=== PATIENT | female | born 1955 | race Caucasian/White ===

== ENCOUNTER 2017-11-22 14:45 | Inpatient (IN) | payer MEDICAID ==
[~2017-11-22] VITALS: Ht 162.5 cm; Wt 181.6 kg
--- NOTE | ~2017-11-22 | PR ---
[place], [place] PROGRESS NOTE NAME: JULIETTE LAYTON UNIT #: [id number] ROOM: 530 DOCTOR: DARELL ANTUNEZ MD,CASTILLO BIRTHDATE: [birth year] DOS: 11/27/2017 SUBJECTIVE: She has been noted comfortable at this time, doing very well, switched to the oral diuretics yesterday. She was planned for possible home discharge today. She has also been assessed with physical therapy for the knees for home. Shortness of breath has continued to improve. There were no symptoms of coughing or chest pain reported by the patient. OBJECTIVE: VITAL SIGNS: For the patient, which has been recorded showed normal temperature, respiratory rate 14, heart rate 77, blood pressure 160/79-157/89. The pulse oxygen saturation on 3 liters was 95% saturation. HEENT: Examination shows head was atraumatic. Eyes nonicterus. NECK: Supple. CARDIOVASCULAR: S1, S2 is audible. LUNGS: Noted clear of any wheezing or crackles. ABDOMEN: Soft, nontender. It was obese. EXTREMITIES: Shows mild edema. IMPRESSION: 1. The patient is stable, respiratory status was noted at the present time with significant improvement noted with acute exacerbation. 2. History of chronic hypoxic respiratory failure. 3. Obstructive sleep apnea disorder. PLAN OF TREATMENT: The patient would be planned for discharge home today. No changes in the medical management at this time will be recommended. Continue previous recommendation for discharge, the patient pulmonary standpoint. Outpatient followup will be established by the patient post-discharge. CASTILLO LOZOYA MD CM:PNTRANS [phone] CASTILLO ANTUNEZ MD 11/27/171921 interface
--- NOTE | ~2017-11-22 | PR ---
[place], [place] PROGRESS NOTE NAME[facility]TON [id number] UNIT #: [id number] ROOM: 530 DOCTOR: DARELL ANTUNEZ MD,CASTILLO BIRTHDATE: [birth year] DOS: 11/24/2017 SUBJECTIVE: She has been noted with reduction in symptoms of shortness breath yesterday including wheezing and coughing. Denies symptoms of chest pain or any hemoptysis. Denies symptoms of nausea or vomiting. Denies any abdominal pain. Denies symptoms of hematemesis, melena or hematochezia. The remaining systems are rather reviewed, they were noted all normal. OBJECTIVE: VITAL SIGNS: Normal temperature, respiratory rate 16, heart rate 67, blood pressure 147/82. Pulse oxygen saturation on 3 liters nasal cannula was 90% saturation. HEENT: Head was atraumatic. Eyes nonicterus. NECK: Supple. It was obese. Severe reduced posterior pharyngeal space, high tongue base. Cardiac soft tissue structures. CARDIOVASCULAR: S1, S2 is audible. LUNGS: The patient was noted without any crackles, moderate decreased breath sounds noted with expiratory wheezing. ABDOMEN: Noted soft and obese. EXTREMITIES: Without any acute edema. MUSCULOSKELETAL: The patient noted without any acute deformities. CENTRAL NERVOUS SYSTEM: Cranial nerves 2-12 intact. No focal deficit. LABORATORY DATA: The patient had a CTA of the chest that was ordered by the primary care attending just noticed small area of ground glass opacity involving the lingula. Remaining lung was noted clear of any acute abnormality. There was no lymphadenopathy was noted. Some scarring in the right mid lung and the patient was also noted with infiltration at that level, cannot be completely excluded. BMP this morning, glucose 169, BUN normal, creatinine was normal. CO2 34. The CBC for the patient noted as normal CBC. IMPRESSION: 1. 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 2. Obstructive sleep apnea, not adherent to the treatment, but used the "BiPAP" for a few hours last night. 3. Hyperglycemia related to corticosteroids. 4. Possibility of small pneumonia or area of atelectasis left lingula can be considered as well. PLAN OF THERAPY: Continuation of the bronchodilators and oxygen supplementation and corticosteroids. The patient was encouraged to use the BiPAP for this patient at this time. Stated some pressure on the bridge of the nose, would be provided nasal strip for this patient to help overcome any pressure on the nose. Antibiotics the patient to be continued. Bronchodilator will be continued. The dose of Solu-Medrol will be decreased for the patient to 40 mg q. 8 hours today. All other plan of therapy for the patient to be continued as well. Monitor respiratory status closely. Usual care. [place], [place] PROGRESS NOTE NAME: JULIETTE LAYTON UNIT #: [id number] ROOM: [facility] DOCTOR: CASTILLO ABARCA MD BIRTHDATE: [birth year] CASTILLO LOZOYA MD CM:SCOTT [id number] CASTILLO ANTUNEZ MD 11/24/172106 interface
--- NOTE | ~2017-11-22 | PR ---
[place], [place] PROGRESS NOTE NAME: JULIETTE LAYTON UNIT #: [id number] ROOM: 530 DOCTOR: DARELL ANTUNEZ MD,CASTILLO BIRTHDATE: [birth year] DOS: 11/26/2017 SUBJECTIVE: The patient was noted comfortable at this time without acute distress. She has been noted with improvement in the respiratory status, which has been noted progressively. Shortness of breath has been noted minimal. She has been assessed yesterday for the need of oxygen requirement was noted with oxygen supplementation needed 3 liters rest, 4 liters with walking and sleep. OBJECTIVE: VITAL SIGNS: For the patient this morning is normal temperature, respiratory rate 18, heart rate 74, blood pressure 160/90. HEENT: Showed no new change. Chronic obesity. CARDIOVASCULAR: S1, S2 is audible. LUNGS: Noted without any wheezing or crackles at present time. The breaths are noted mildly decreased bilaterally. ABDOMEN: Soft with severe obesity. LABORATORY DATA: Ultrasound of bilateral lower extremities for the patient was noted without any deep venous thrombosis. IMPRESSION: 1. Progressive improvement and resolution of the acute exacerbation of bronchial asthma. 2. History of obstructive sleep apnea disorder and respiratory failure. PLAN OF MANAGEMENT: Discharge the patient home on oral medications. Outpatient followup suggested for the patient. The patient was encouraged use of BiPAP/CPAP at home use as well. CASTLILO LOZOYA MD CM:PNTRANS [phone] CASTILLO ANTUNEZ MD 11/27/17 0103 interface
--- NOTE | ~2017-11-22 | CON ---
[place], [place] REPORT OF CONSULTATION NAME: JULIETTE LAYTON UNIT #: [id number] ROOM: 530 DOCTOR: CASTILLO ABARCA MD BIRTHDATE: [birth year] DOS: 11/23/2017 REQUESTED BY: Hospitalist services. REASON FOR CONSULTATION: To assess the patient for current ongoing acute respiratory symptoms, shortness breath, cough and others. HISTORY OF PRESENT ILLNESS: This is a 62-year-old white female patient who has been admitted to the hospital with developed symptoms of acute chest cold symptoms about a week. The patient started with exposure to the environment of tobacco products. The patient in her apartment facility. The patient stated she had developed progressive increased chest congestion with coughing with shortness of breath. The wheezing of the patient was also noted. All the symptoms progressed for the patient and was not improving at home. The patient came into the Emergency Room where she has been assessed and currently hospitalized for further medical management. She denies symptoms of hemoptysis or chest pain. Current symptom of cough and continue to remains nonproductive. REVIEW OF SYSTEMS: CONSTITUTIONAL SYMPTOMS: Reported as fatigue and tiredness and symptoms of fever or chills. EYES: Denies any burning, redness, or tenderness. EAR, NOSE, AND THROAT: Denies sore throat, hoarseness, otalgia, postnasal drainage or epistaxis. CARDIOVASCULAR: Denies angina pain, edema or pain of the lower extremities. GASTROINTESTINAL: Noted with severe morbid obesity for the patient without any abdominal pain, nausea, vomiting, diarrhea, hematemesis, or melena. GENITOURINARY: No dysuria, suprapubic pain, hematuria. SKIN: Denies any abnormal lesions or rashes. MUSCULOSKELETAL: Without acute deformity, chronic joint pain for the patient, which has been noted stable, unchanged. CENTRAL NERVOUS SYSTEM: Denies any symptoms of focal neurologic weakness. MUSCULOSKELETAL: Tingling sensation of the extremities. Remaining systems were reviewed. The patient, they were noted all negative. PAST MEDICAL HISTORY: 1. Hypothyroidism. 2. History of bronchial asthma. 3. Generalized anxiety disorder. 4. Congestive heart failure, whether systolic or diastolic was unknown. 5. Gastroesophageal reflux disease. 6. Essential hypertension. 7. Obstructive sleep apnea disorder, nonadherent with the treatment as well. 8. Prediabetes history. PAST SURGICAL HISTORY: 1. Appendectomy. 2. Bilateral total knee replacement. 3. Bladder sling insertion. [place], [place] REPORT OF CONSULTATION NAME: JULIETTE LAYTON UNIT #: [id number] ROOM: [facility] DOCTOR: CASTILLO ABARCA MD BIRTHDATE: [birth year] 4. Carpal tunnel surgery. 5. Cholecystectomy. 6. Right foot surgery. SOCIAL HISTORY: She is , lives at home in her own apartment, has 2 children. There were no past history of tobacco, alcohol or illicit drug use known. FAMILY HISTORY: The patient's father with complication of liver cancer. Mother as well. HOME MEDICATIONS: Listed on admission as use of vitamin B12, folic acid, gabapentin, Synthroid, lorazepam, metoprolol tartrate, omeprazole, oxybutynin, and Restoril. ALLERGIES: No known drug allergies. PHYSICAL EXAMINATION: GENERAL: This is a 62-year-old female patient who was being currently noted comfortably lying in the bed without any acute distress. Height of 5 feet 4 inches, weight of 400 pounds with BMI 68.7. VITAL SIGNS: For the patient which has been recorded showed normal temperature, respiratory rate 18-20, heart rate of 105-77, blood pressure 143/74-92/65. Pulse oxygen saturation on room air 90%, on 3 liters at 92% saturation. HEENT: Head was atraumatic. Eyes nonicterus. Severe reduced posterior pharyngeal space with high tongue base and crowding soft tissue structures. NECK: Supple. Short and obese. CARDIOVASCULAR SYSTEM: S1, S2 audible. LUNGS: Noted general reduction of the breath sounds were noted bilaterally. Expiratory wheezing was present. ABDOMEN: Soft with severe morbid obesity. EXTREMITIES: Shows chronic severe obesity without edema, clubbing or cyanosis. SKIN: Visible skin: No lesions or rashes. MUSCULOSKELETAL: Without acute deformities. CENTRAL NERVOUS SYSTEM: Limited examination; however, no focal deficit noted. LABORATORY DATA: Lactic acid on admission 2.0. Arterial blood gas on admission on room air, pH of 7.35, pCO2 of 61, pO2 of 84. CMP of the patient that was done on admission shows BUN 11, creatinine 1.06, glucose 137, CO2 of 33. Influenza A and B, nasal washing antigen for the patient on 11/22/2017 were negative. The CBC of the patient on 11/22/2017 normal. CMP of the patient that was done this morning, BUN 9, creatinine 1.09, glucose 169. CBC this morning was noted as normal. The CBC of the patient on 11/22/2017 shows eosinophils of 4.9%. The chest x-ray of the patient 2-view limited assessment because severe morbid obesity of the patient, unable to assess the patient correctly but at least there were no large area of consolidation or any evidence of pleural fluids. IMPRESSION: 1. The patient was admitted to the hospital noted with acute exacerbation of [place], [place] REPORT OF CONSULTATION NAME: JULIETTE LAYTON UNIT #: [id number] ROOM: 530 DOCTOR: DARELL ANTUNEZ MD,CASTILLO BIRTHDATE: [birth year] bronchial asthma with eosinophilic type would be considered likely. 2. History of obstructive sleep apnea disorder, nonadherence to the treatment. 3. Severe morbid obesity. 4. Mild hyperglycemia related to corticosteroids. PLAN OF MANAGEMENT: Continue oxygen supplementation, bronchodilators and other treatment. Dose of Solu-Medrol for the patient will be continued 60 mg q. 8 hours for the 24 hours today and then the dose could be reduced from tomorrow based on the further improvement in respiratory status. Other supportive therapy, plan of management, to be continued with addition of changes will be recommended based on the further progression of illness and further assessment. Thanks for allowing me to participate in the care of this patient. CASTILLO LOZOYA MD CM:CONSTR:REPORT OF CONSULTATION 1504 11/24/17 0240 interface
--- NOTE | ~2017-11-22 | PR ---
[place], [place] PROGRESS NOTE NAME: JULIETTE LAYTON UNIT #: [id number] ROOM: 530 DOCTOR: DARELL ANTUNEZ MD,CASTILLO BIRTHDATE: [birth year] DOS: 11/25/2017 SUBJECTIVE: She has been noted comfortable at this time, tolerating the BiPAP during this current hospitalization, willing to use that. Denies symptoms of chest pain or any hemoptysis or any abdominal pain. The patient has not been noted with symptoms of abdominal pain. Shortness of breath is resolving. Coughing and wheezing are all improving progressively. OBJECTIVE: VITAL SIGNS: Normal temperature, respiratory rate 18, heart rate 76, blood pressure 170/96-164/99. Pulse oxygen saturation on 3 liters nasal cannula is 92% saturation. HEENT: Head was atraumatic. Eyes nonicterus. Chronic obesity. CARDIOVASCULAR: S1, S2 audible. LUNGS: Without any crackle, rhonchi, or wheezing today. ABDOMEN: Soft, very obese. EXTREMITIES: Without any acute edema. LABORATORY DATA: Blood glucose noted elevated at 221, normal BUN and creatinine. CBC of this morning, hemoglobin 11.8, platelet count was normal. IMPRESSION: 1. Resolving acute exacerbation of bronchial asthma. 2. Obstructive sleep apnea disorder, not adherent with the therapy at home. 3. The patient with respiratory failure as well. PLAN OF TREATMENT: Continuation of bronchodilators, oxygen supplementation. Discharge planning. The patient has been ordered echocardiogram that was pending for the patient. Assess the results as well. Continue other supportive plan of management, other therapy and care plan. Usual treatment. CASTILLO LOZOYA MD CM:PNTRANS [phone] CASTILLO ANTUNEZ MD 11/26/17 0042 interface
--- NOTE | ~2017-11-22 | CON ---
[place], [place] REPORT OF CONSULTATION NAME: JULIETTE LAYTON UNIT #: [id number] ROOM: 530 DOCTOR: SALENA BRINK MD BIRTHDATE: [birth year] DOS: 11/23/2017 CARDIOLOGY CONSULT REASON FOR CONSULTATION: Dyspnea and congestive heart failure. CLINICAL HISTORY: The patient is a 62-year-old patient with history of hypertension, COPD, morbid obesity, acid reflux, sleep apnea, was admitted for her shortness of breath as well as productive cough. Cardiology was consulted for further recommendations due to her dyspnea. Her main complaint is cough as well as some wheezing and also progressed shortness of breath and lower extremity edema. Denies any PND or orthopnea. No nausea, vomiting or diarrhea. No palpitation, no dizziness, no syncope, no chest pains, no visual changes, no headache, no neurologic symptoms. She was on home oxygen as needed. At the time of examination, the patient is comfortable, denies any chest pain. Her breathing is better. REVIEW OF SYSTEMS: Review of the 10 systems negative except as described above. PAST MEDICAL HISTORY: 1. Hypertension. 2. COPD. 3. Morbid obesity. 4. Sleep apnea. 5. Chronic kidney disease. 6. Asthma. 7. Dyslipidemia. 8. Hypothyroidism. 9. Overactive bladder. 10. History of pulmonary emboli about 15 years ago. PAST SURGICAL HISTORY: 1. History of appendicectomy. 2. Bilateral knee replacement. 3. Cholecystectomy. HOME MEDICATIONS: Reviewed. SOCIAL HISTORY: The patient does not smoke or drink, does not use illicit drugs. FAMILY HISTORY: Father from liver cancer. Mother , cause unknown. ALLERGIES: THE PATIENT IS ALLERGIC TO TAPE. PHYSICAL EXAMINATION: VITAL SIGNS: Blood pressure 143/74, pulse 79, respiration rate is 18, weight of 181.5 kilos with a BMI 68.8. GENERAL: Alert, comfortable, in no acute distress. [place], [place] REPORT OF CONSULTATION NAME: JULIETTE LAYTON UNIT #: [id number] ROOM: 530 DOCTOR: SALENA BRINK MD BIRTHDATE: [birth year] HEENT: Pupils are round and equal. No jaundice. Tongue was moist. Pharynx clear. NECK: Supple, no distended neck veins, no carotid bruit. CHEST: Symmetrical, nontender. LUNGS: A few scattered rhonchi, diminished at the bases. HEART: Regular rhythm, no S3. Distant heart sounds, grade 1/6 systolic murmur at the right sternal border. No palpable thrills. ABDOMEN: Morbidly obese. Bowel sounds normal. Unable to do a complete exam due to morbid obesity. EXTREMITIES: Showed 2+ edema. Distal pulses are fair. SKIN: Warm and dry. No cyanosis. NEUROLOGIC: The patient is alert, oriented. No focal neurologic deficit. RECTAL: Deferred. GENITOURINARY: Deferred. REVIEW OF THE DIAGNOSTIC TESTS: EKG shows sinus rhythm, left ventricular hypertrophy. Labs reviewed. A 2D echo in August 2016 reviewed, which was technically suboptimal study with normal LV function. TSH 1.0, hemoglobin 12.6, platelets 276,000, white cell count 5.7. Creatinine 1.0. IMPRESSION: 1. Acute chronic diastolic heart failure. 2. Super morbid obesity. 3. Chronic obstructive pulmonary disease exacerbation. 4. Hypertension. 5. Sleep apnea. 6. Hypoxemia. 7. History of pulmonary emboli about 15 years ago, postoperative after her knee surgeries. 8. Status post bilateral knee replacement. RECOMMENDATIONS: 1. Blood pressure and heart rates are stable. 2. Start Lasix 20 mg once daily, monitor her blood pressure and renal function. 3. Check 2D echo with [facility] for LV function and valvular function. 4. She was scheduled to have a CT angio of the chest to rule out pulmonary emboli. 5. Continue her home medications as well as oxygen. 6. No family at bedside at the time of my examination. 7. Risk factor modification for diet, exercise and gradual weight loss discussed. [place], [place] REPORT OF CONSULTATION NAME: JULIETTE LAYTON UNIT #: [id number] ROOM: 530 DOCTOR: KEENA SILVA,SALENA BIRTHDATE: [birth year] SALENA BRINK MD CM:CONSTR:REPORT OF CONSULTATION 45 11/23/172227 interface
--- NOTE | ~2017-11-22 | PR ---
[place], [place] PROGRESS NOTE NAME: JULIETTE LAYTON UNIT #: [id number] ROOM: 530 DOCTOR: SALENA BRINK MD BIRTHDATE: [birth year] DOS: 11/24/2017 REASON FOR VISIT: Congestive heart failure and hypertension. SUBJECTIVE: The patient is feeling better. Edema is about the same, no PND, no orthopnea, no nausea, vomiting, no diarrhea, no fever and chills, no cough. REVIEW OF SYSTEMS: Review of the 8 systems negative except as mentioned above. RHYTHM STRIPS: The patient in sinus rhythm. PHYSICAL EXAMINATION: VITAL SIGNS: Blood pressure 147/82, pulse 67, respiration rate of 16. GENERAL: Alert, comfortable, in no acute distress. HEENT: Pupils are equal, no jaundice. NECK: Supple, no distended neck veins, no carotid bruit. CHEST: Nontender. LUNGS: Fair air entry bilaterally. HEART: Regular rhythm, no S3. Distant heart sounds. ABDOMEN: Morbidly obese. Bowel sounds normal. EXTREMITIES: Showed at least 2+ edema. Distal pulses are fair. SKIN: Warm and dry. No cyanosis, no clubbing. LABORATORY DATA AND MEDICATIONS: Reviewed. IMPRESSION: 1. Acute on chronic diastolic heart failure. 2. Hypertension. 3. Super morbid obesity. 4. Sleep apnea. 5. History of pulmonary emboli about 15 years ago. 6. Acute on chronic obstructive pulmonary disease exacerbation. RECOMMENDATIONS: 1. Continue current medications. 2. Continue her Lasix 20 mg and adjust the dose based on her response to the medication renal functions. 3. A 2D echo was ordered and this will be done Saturday. 4. Risk factor modification for diet, exercise, weight loss discussed. [place], [place] PROGRESS NOTE NAME: JULIETTE LAYTON UNIT #: [id number] ROOM: 530 DOCTOR: SALENA BRINK MD BIRTHDATE: [birth year] SALENA BRINK MD CM:PNTRANS [phone] SALENA BRINK MD 11/25/17 0020 interface
[~2017-11-22 14:45] MED LIST: 'PARAFON FORTE500 M1 PO; AMBIEN10 MG PO; ANAPROX DS550 MG PO; ATIVAN1 MG PO; B121000 MCG/1 IM; DALMANE30 MG PO; FAMOTIDINE20 M1 PO; HYDROCODONE BIT1 T11 PO; KEFLEX500 MG PO; LOPRESSOR50 MG PO; MOTRIN800 MG PO; NATURE'S BLEND F1 MG PO; NEURONTIN600 MG PO; NORCO 10-325 T1 EACH PO; NYAMYC100000 U/G T; OXYBUTYNIN5 MG PO; PREDNISONE20 MG PO; PRILOSEC20 MG PO; RESTORIL15 MG PO; ROBAXIN750 MG PO; ROBITUSSIN AC 110 ML PO; ROBITUSSIN DM 101 OZ; SYMBICORT1 AE1 IH; SYNTHROID,LEV100 MCG PO; XANAX0.5 MG PO; ZITHROMAX Z PA250 MG PO; ZOLOFT100 MG PO; ZYRTEC10 M2 PO
[2017-11-22 14:55] VITALS: BP 137/72
[2017-11-22 15:51] LABS: ABG BASE EXCESS 6.1 mmol/L (-2.0-2.0); ABG O2 SATURATION 96.4 % (95-97); ARTERIAL BLOOD GAS PCO2 61.3 mmHg (35-45); ARTERIAL BLOOD GAS PH 7.351 (7.35-7.45); ARTERIAL BLOOD GAS PO2 84.1 mmHg (80-90)
[2017-11-22 15:54] LABS: ALBUMIN 3.1 gm/dl (3.1-4.5); ALKALINE PHOSPHATASE 81 U/L (45-117); BUN 11 mg/dl (7-24); CHLORIDE 103 mmol/L (98-107); CREATININE 1.06 mg/dL (0.55-1.02); POTASSIUM 3.9 mmol/L (3.5-5.1); SGOT/AST 25 IU/L (3-35); SGPT/ALT 19 U/L (12-78); SODIUM 141 mmol/L (136-145); TOTAL PROTEIN 7.5 gm/dL (6.4-8.2); TROPONIN I 0.019 ng/ml (<0.045)
[2017-11-22 16:06] LABS: BASO % 0.7 % (0.0-1.0); EOS # 0.3 10*3/uL (0.0-0.4); EOS % 4.9 % (1.0-4.0); HEMATOCRIT 41.8 % (37.0-47.0); HEMOGLOBIN 12.7 g/dl (12.0-16.0); LYMPH # 1.9 10*3/uL (1.3-4.4); MEAN CELL VOLUME 97.4 fl (81.0-99.0); MEAN CORPUSCULAR HGB 29.6 pg (27.0-31.0); MEAN CORPUSCULAR HGB CONC 30.4 g/dl (33.0-37.0); MEAN PLATELET VOLUME 9.5 fl (9.6-12.3); MONO # 0.4 10*3/uL (0.1-1.0); MONO % 7.5 % (3.0-9.0); NEUT # 3.2 10*3/uL (2.3-7.9); NEUT % 53.6 % (47.0-73.0); PLATELET COUNT AUTOMATED 249 10*3/uL (130-400); RED BLOOD COUNT 4.29 10*6/uL (4.10-5.10); RED CELL DISTRI WIDTH 14.2 % (0-14.5); WHITE BLOOD COUNT 5.9 10*3/uL (4.8-10.8)
[2017-11-22 16:24] VITALS: BP 150/57
[2017-11-22 17:10] VITALS: BP 92/645; BP 92/65
[2017-11-22 17:15] VITALS: BP 92/65
[2017-11-22] MEDS ORDERED: ZESTORETIC 10-1 EACH PO (17:56)
[2017-11-22] MEDS ORDERED: FLOVENT DISKUS50 MCG INH (17:57)
[2017-11-22] MEDS ORDERED: GOOD NEIGHBOR L10 MG PO (17:58)
[2017-11-22 21:33] VITALS: BP 142/88
[2017-11-23 00:39] VITALS: BP 153/83
[2017-11-23 06:35] LABS: BASO % 0.2 % (0.0-1.0); HEMATOCRIT 42.6 % (37.0-47.0); HEMOGLOBIN 12.6 g/dl (12.0-16.0); LYMPH # 0.7 10*3/uL (1.3-4.4); LYMPH % 12.5 % (27.0-41.0); MEAN CELL VOLUME 97.9 fl (81.0-99.0); MEAN CORPUSCULAR HGB CONC 29.6 g/dl (33.0-37.0); MEAN PLATELET VOLUME 9.6 fl (9.6-12.3); MONO # 0.1 10*3/uL (0.1-1.0); MONO % 1.4 % (3.0-9.0); NEUT # 4.8 10*3/uL (2.3-7.9); PLATELET COUNT AUTOMATED 276 10*3/uL (130-400); RED BLOOD COUNT 4.35 10*6/uL (4.10-5.10); RED CELL DISTRI WIDTH 13.9 % (0-14.5); WHITE BLOOD COUNT 5.7 10*3/uL (4.8-10.8)
[2017-11-23 07:05] LABS: ALKALINE PHOSPHATASE 74 U/L (45-117); BUN 9 mg/dl (7-24); CHLORIDE 102 mmol/L (98-107); CHOLESTEROL 165 mg/dL (<200); CREATININE 1.09 mg/dL (0.55-1.02); HDL CHOLESTEROL 49 mg/dl (40-60); LDL CHOLESTEROL 101 mg/dL (9-159); PHOSPHOROUS 3.7 mg/dL (2.5-4.9); POTASSIUM 4.2 mmol/L (3.5-5.1); SGOT/AST 23 IU/L (3-35); SGPT/ALT 21 U/L (12-78); SODIUM 142 mmol/L (136-145); TOTAL PROTEIN 7.6 gm/dL (6.4-8.2); TRIGLYCERIDES 74 mg/dl (<150); VLDL CHOLESTEROL 15 mg/dL (6-40)
[2017-11-23 08:00] VITALS: BP 149/84
[2017-11-23 08:05] LABS: VITAMIN D, 25-HYDROXY 45.4 ng/mL (30-100)
[2017-11-23 12:00] VITALS: BP 143/74
[2017-11-23 16:00] VITALS: BP 142/77
[2017-11-23 20:00] VITALS: BP 148/82
[2017-11-24] VITALS: BP 150/75
[2017-11-24 06:59] LABS: BUN 14 mg/dl (7-24); CHLORIDE 98 mmol/L (98-107); CREATININE 0.96 mg/dL (0.55-1.02); POTASSIUM 4.2 mmol/L (3.5-5.1); SODIUM 139 mmol/L (136-145)
[2017-11-24 08:27] VITALS: BP 171/95
[2017-11-24 12:19] VITALS: BP 147/82
[2017-11-24 16:00] VITALS: BP 160/88
[2017-11-25] VITALS: BP 164/99
[2017-11-25 07:04] LABS: BASO % 0.1 % (0.0-1.0); HEMATOCRIT 39.3 % (37.0-47.0); HEMOGLOBIN 11.8 g/dl (12.0-16.0); LYMPH # 0.6 10*3/uL (1.3-4.4); MEAN CELL VOLUME 97.3 fl (81.0-99.0); MEAN CORPUSCULAR HGB 29.2 pg (27.0-31.0); MEAN PLATELET VOLUME 10.1 fl (9.6-12.3); MONO # 0.2 10*3/uL (0.1-1.0); MONO % 2.2 % (3.0-9.0); NEUT # 7.4 10*3/uL (2.3-7.9); NEUT % 89.5 % (47.0-73.0); PLATELET COUNT AUTOMATED 280 10*3/uL (130-400); RED BLOOD COUNT 4.04 10*6/uL (4.10-5.10); RED CELL DISTRI WIDTH 13.8 % (0-14.5); WHITE BLOOD COUNT 8.3 10*3/uL (4.8-10.8)
[2017-11-25 07:20] LABS: BUN 18 mg/dl (7-24); CHLORIDE 99 mmol/L (98-107); CREATININE 0.94 mg/dL (0.55-1.02); POTASSIUM 3.8 mmol/L (3.5-5.1); SODIUM 140 mmol/L (136-145)
[2017-11-25 08:00] VITALS: BP 170/96
[2017-11-25 12:00] VITALS: BP 160/85
[2017-11-25 16:00] VITALS: BP 130/66
[2017-11-25 20:00] VITALS: BP 143/75; BP 160/85
[2017-11-26 00:26] VITALS: BP 155/85
[2017-11-26 08:00] VITALS: BP 160/90
[2017-11-26 12:00] VITALS: BP 155/86
[2017-11-26 16:00] VITALS: BP 139/69
[2017-11-26 20:00] VITALS: BP 160/85
[2017-11-27] VITALS: BP 157/85
[2017-11-27 06:34] LABS: BASO % 0.1 % (0.0-1.0); HEMATOCRIT 39.9 % (37.0-47.0); HEMOGLOBIN 12.1 g/dl (12.0-16.0); LYMPH # 0.6 10*3/uL (1.3-4.4); LYMPH % 9.2 % (27.0-41.0); MEAN CELL VOLUME 95.2 fl (81.0-99.0); MEAN CORPUSCULAR HGB 28.9 pg (27.0-31.0); MEAN CORPUSCULAR HGB CONC 30.3 g/dl (33.0-37.0); MEAN PLATELET VOLUME 10.3 fl (9.6-12.3); MONO # 0.2 10*3/uL (0.1-1.0); NEUT % 86.3 % (47.0-73.0); PLATELET COUNT AUTOMATED 283 10*3/uL (130-400); RED BLOOD COUNT 4.19 10*6/uL (4.10-5.10); RED CELL DISTRI WIDTH 13.5 % (0-14.5)
[2017-11-27 06:57] LABS: BUN 22 mg/dl (7-24); CHLORIDE 95 mmol/L (98-107); CREATININE 0.97 mg/dL (0.55-1.02); POTASSIUM 4.1 mmol/L (3.5-5.1); SODIUM 137 mmol/L (136-145)
[2017-11-27 08:00] VITALS: BP 168/79
[2017-11-27 12:00] VITALS: BP 153/68
[2017-11-27] MEDS ORDERED: PREDNISONE10 MG PO (13:30)
[2017-11-27] MEDS ORDERED: ASPIRIN ADULT L81 M2 PO (13:30)
[2017-11-27] MEDS ORDERED: MUCINEX ER600 MG PO (13:30)
[2017-11-27] MEDS ORDERED: FUROSEMIDE40 MG PO (13:30)
[2017-11-27] MEDS ORDERED: PROAIR HFA8.5 GM INH (13:32)
== END 2017-11-27 15:30 | disposition home health service (06) | DRG 291 ==
LOC: ED 14:45 → EDHOLD 16:00 → 5E 16:00
PROVIDERS: Internal Medicine; Nurse Practitioner Family; Student in an Organized Health Care Education/Training Program
DX: I13.0 Hypertensive heart and chronic kidney disease with heart failure and stage 1 through stage 4 chronic kidney disease, or unspecified chronic kidney disease (principal); J18.9 Pneumonia, unspecified organism; J96.11 Chronic respiratory failure with hypoxia; E87.2 Acidosis; J44.0 Chronic obstructive pulmonary disease with (acute) lower respiratory infection; E44.1 Mild protein-calorie malnutrition; E66.01 Morbid (severe) obesity due to excess calories; J45.901 Unspecified asthma with (acute) exacerbation; N18.3 Chronic kidney disease, stage 3 (moderate); K76.0 Fatty (change of) liver, not elsewhere classified; I50.33 Acute on chronic diastolic (congestive) heart failure; J44.1 Chronic obstructive pulmonary disease with (acute) exacerbation; Z68.44 Body mass index [BMI] 60.0-69.9, adult; G62.9 Polyneuropathy, unspecified; E53.8 Deficiency of other specified B group vitamins; F41.1 Generalized anxiety disorder; D72.810 Lymphocytopenia; K21.9 Gastro-esophageal reflux disease without esophagitis; N32.81 Overactive bladder; E03.9 Hypothyroidism, unspecified; Z96.653 Presence of artificial knee joint, bilateral; Z90.49 Acquired absence of other specified parts of digestive tract; Z98.51 Tubal ligation status; Z80.8 Family history of malignant neoplasm of other organs or systems; Z82.49 Family history of ischemic heart disease and other diseases of the circulatory system; Z88.9 Allergy status to unspecified drugs, medicaments and biological substances; Z86.718 Personal history of other venous thrombosis and embolism; G47.33 Obstructive sleep apnea (adult) (pediatric); Z86.711 Personal history of pulmonary embolism

== ENCOUNTER → 2018-11-06 | Outpatient (CLI) | payer MEDICAID ==
[~2018-11-06] MED LIST changes: +ASPIRIN ADULT L81 M2 PO; +AVPAK AZITHROM250 MG PO; +COZAAR50 M1 PO; +FLOVENT DISKUS50 MCG INH; +FUROSEMIDE40 MG PO; +GOOD NEIGHBOR L10 MG PO; +KLOR-CON M1010 ME1 PO; +LASIX20 MG PO; +LOPRESSOR100 M1 PO; -LOPRESSOR50 MG PO; +MUCINEX ER600 MG PO; +PREDNISONE10 MG PO; +PROAIR HFA8.5 GM INH; +ZESTORETIC 10-1 EACH PO
--- NOTE | ~2018-11-06 | ST ---
[place], [place] EXERCISE STRESS TEST REPORT NAME: JULIETTE LAYTON UNIT #: [id number] ROOM: DOCTOR: HOLLIE SILVA [facility] BIRTHDATE: [birth year] DOS: 11/06/2018 Received Lexiscan 0.4 mg over 10 seconds. Isotope was injected. Heart rate is 97, no ischemic changes on EKG. No complication noted. Myocardial perfusion scan to follow. VENTURA BROWNE MD CM:STRESS:EXERCISE STRESS TEST REPORT [id number] VENTURA BROWNE MD [facility]
== END | disposition home or self-care (01) ==
LOC: CARD 02:47
DX: R07.9 Chest pain, unspecified (principal); R53.81 Other malaise

== ENCOUNTER → 2020-02-10 | Outpatient (CLI) | payer MEDICAID | END | disposition home or self-care (01) | LOC: COVID19 00:29 | DX: R50.9 Fever, unspecified (principal); Z20.828 Contact with and (suspected) exposure to other viral communicable diseases ==

== ENCOUNTER 2020-06-12 16:05 | Inpatient (IN) | payer MEDICAID ==
[~2020-06-12] VITALS: Ht 163 cm; Wt 182.5 kg
[~2020-06-12 16:05] MED LIST changes: +PRILOSEC20 M1 PO; -PRILOSEC20 MG PO
[2020-06-12 16:16] VITALS: BP 138/62
[2020-06-12 16:46] LABS: BASO % 0.2 % (0.0-1.0); EOS # 0.1 10*3/uL (0.0-0.4); EOS % 2.2 % (1.0-4.0); HEMATOCRIT 39.6 % (37.0-47.0); LYMPH # 0.8 10*3/uL (1.3-4.4); LYMPH % 20.5 % (27.0-41.0); MEAN CELL VOLUME 95.9 fl (81.0-99.0); MEAN CORPUSCULAR HGB 29.1 pg (27.0-31.0); MEAN CORPUSCULAR HGB CONC 30.3 g/dl (33.0-37.0); MEAN PLATELET VOLUME 9.9 fl (9.6-12.3); MONO # 0.3 10*3/uL (0.1-1.0); MONO % 6.8 % (3.0-9.0); NEUT # 2.9 10*3/uL (2.3-7.9); NEUT % 69.8 % (47.0-73.0); PLATELET COUNT AUTOMATED 210 10*3/uL (130-400); RED BLOOD COUNT 4.13 10*6/uL (4.10-5.10); RED CELL DISTRI WIDTH 13.7 % (0-14.5); WHITE BLOOD COUNT 4.1 10*3/uL (4.8-10.8)
[2020-06-12 16:57] LABS: ACT PARTIAL THROMBO TIME 24.9 SECONDS (20.0-32.1)
[2020-06-12 17:03] LABS: ALBUMIN 3.1 gm/dl (3.1-4.5); ALKALINE PHOSPHATASE 72 U/L (45-117); BUN 13 mg/dl (7-24); CHLORIDE 95 mmol/L (98-107); CREATININE 0.89 mg/dL (0.55-1.02); POTASSIUM 4.3 mmol/L (3.5-5.1); SGOT/AST 16 IU/L (3-35); SGPT/ALT 17 U/L (12-78); SODIUM 140 mmol/L (136-145); TOTAL PROTEIN 7.2 gm/dL (6.4-8.2)
[2020-06-12 17:06] LABS: TROPONIN I < 0.015 ng/ml (<0.045)
[2020-06-12 17:24] LABS: ABG BASE EXCESS 13.9 mmol/L (-2.0-2.0); ARTERIAL BLOOD GAS PH 7.32 (7.35-7.45)
[2020-06-12 17:30] VITALS: BP 130/74
[2020-06-12 18:30] VITALS: BP 130/74
[2020-06-12 20:00] VITALS: BP 122/54
[2020-06-12 23:12] LABS: ABG BASE EXCESS 13.8 mmol/L (-2.0-2.0); ARTERIAL BLOOD GAS PH 7.329 (7.35-7.45)
[2020-06-13] VITALS: BP 138/66
[2020-06-13] MEDS ORDERED: LOSARTAN POTASS50 M1 PO (01:48)
[2020-06-13] MEDS ORDERED: VITAMIN D3125 MC1 PO (01:50)
[2020-06-13] MEDS ORDERED: GLUCOPHAGE XR750 MG PO (01:51)
[2020-06-13] MEDS ORDERED: CELEXA10 MG PO (01:52)
[2020-06-13] MEDS ORDERED: LYRICA300 MG PO (01:53)
[2020-06-13 06:52] LABS: BASO % 0.3 % (0.0-1.0); HEMATOCRIT 37.6 % (37.0-47.0); LYMPH # 0.6 10*3/uL (1.3-4.4); LYMPH % 15.3 % (27.0-41.0); MEAN CELL VOLUME 93.3 fl (81.0-99.0); MEAN CORPUSCULAR HGB 28.5 pg (27.0-31.0); MEAN CORPUSCULAR HGB CONC 30.6 g/dl (33.0-37.0); MEAN PLATELET VOLUME 10.2 fl (9.6-12.3); MONO # 0.1 10*3/uL (0.1-1.0); MONO % 1.5 % (3.0-9.0); NEUT # 3.2 10*3/uL (2.3-7.9); NEUT % 82.1 % (47.0-73.0); PLATELET COUNT AUTOMATED 199 10*3/uL (130-400); RED BLOOD COUNT 4.03 10*6/uL (4.10-5.10); RED CELL DISTRI WIDTH 13.6 % (0-14.5); WHITE BLOOD COUNT 3.9 10*3/uL (4.8-10.8)
[2020-06-13 07:01] LABS: ACT PARTIAL THROMBO TIME 25.3 SECONDS (20.0-32.1)
[2020-06-13 07:08] LABS: ALBUMIN 3.1 gm/dl (3.1-4.5); ALKALINE PHOSPHATASE 68 U/L (45-117); BUN 12 mg/dl (7-24); CHLORIDE 96 mmol/L (98-107); CHOLESTEROL 207 mg/dL (<200); CREATININE 0.73 mg/dL (0.55-1.02); FREE T4 1.17 ng/dl (0.76-1.46); HDL CHOLESTEROL 55 mg/dl (40-60); LDL CHOLESTEROL 129 mg/dL (9-159); SGOT/AST 28 IU/L (3-35); SGPT/ALT 18 U/L (12-78); SODIUM 137 mmol/L (136-145); TOTAL PROTEIN 7.2 gm/dL (6.4-8.2); TRIGLYCERIDES 114 mg/dl (<150); VLDL CHOLESTEROL 23 mg/dL (6-40)
[2020-06-13 07:16] LABS: POTASSIUM 4.8 mmol/L (3.5-5.1)
[2020-06-13 07:39] LABS: VITAMIN D, 25-HYDROXY 55.8 ng/mL (30-100)
[2020-06-13 08:00] VITALS: BP 146/64
[2020-06-13 09:20] LABS: ABG BASE EXCESS 12.8 mmol/L (-2.0-2.0); ARTERIAL BLOOD GAS PH 7.405 (7.35-7.45)
== END 2020-06-13 11:09 | disposition left against medical advice (07) | DRG 140 ==
LOC: ED 16:05 → EDHOLD 17:34 → 5E 17:49
PROVIDERS: Emergency Medicine; Internal Medicine; Internal Medicine Critical Care Medicine; ADMIT Family Medicine; ATTEND Family Medicine
PROC: 5A09357 Assistance with Respiratory Ventilation, Less than 24 Consecutive Hours, Continuous Positive Airway Pressure (ICD-10-PCS; principal; 2020-06-13)
DX: J44.1 Chronic obstructive pulmonary disease with (acute) exacerbation (principal); J96.21 Acute and chronic respiratory failure with hypoxia; E66.01 Morbid (severe) obesity due to excess calories; J96.22 Acute and chronic respiratory failure with hypercapnia; D72.819 Decreased white blood cell count, unspecified; E87.8 Other disorders of electrolyte and fluid balance, not elsewhere classified; R73.9 Hyperglycemia, unspecified; E03.9 Hypothyroidism, unspecified; K21.9 Gastro-esophageal reflux disease without esophagitis; F41.9 Anxiety disorder, unspecified; N18.30 Chronic kidney disease, stage 3 unspecified; G62.9 Polyneuropathy, unspecified; N32.81 Overactive bladder; Z96.653 Presence of artificial knee joint, bilateral; Z77.22 Contact with and (suspected) exposure to environmental tobacco smoke (acute) (chronic); E78.1 Pure hyperglyceridemia; Z53.29 Procedure and treatment not carried out because of patient's decision for other reasons; G47.33 Obstructive sleep apnea (adult) (pediatric); R07.89 Other chest pain; I13.0 Hypertensive heart and chronic kidney disease with heart failure and stage 1 through stage 4 chronic kidney disease, or unspecified chronic kidney disease; E87.3 Alkalosis; I50.32 Chronic diastolic (congestive) heart failure; Z99.81 Dependence on supplemental oxygen; Z91.048 Other nonmedicinal substance allergy status; Z90.49 Acquired absence of other specified parts of digestive tract; Z82.49 Family history of ischemic heart disease and other diseases of the circulatory system; Z80.0 Family history of malignant neoplasm of digestive organs; Z80.3 Family history of malignant neoplasm of breast; Z79.899 Other long term (current) drug therapy; Z79.82 Long term (current) use of aspirin; Z98.51 Tubal ligation status; Z68.44 Body mass index [BMI] 60.0-69.9, adult

== ENCOUNTER 2021-01-15 21:26 | Emergency (ER) | payer MEDICAID ==
[~2021-01-15 21:26] MED LIST changes: +CELEXA10 MG PO; +GLUCOPHAGE XR750 MG PO; +LOSARTAN POTASS50 M1 PO; +LYRICA300 MG PO; +VITAMIN D3125 MC1 PO
[2021-01-15 21:44] VITALS: BP 149/72
[2021-01-15 22:24] LABS: BASO % 0.4 % (0.0-1.0); EOS # 0.1 10*3/uL (0.0-0.4); EOS % 2.4 % (1.0-4.0); HEMATOCRIT 35.3 % (37.0-47.0); LYMPH % 21.3 % (27.0-41.0); MEAN PLATELET VOLUME 10.1 fl (9.6-12.3); MONO # 0.4 10*3/uL (0.1-1.0); MONO % 7.9 % (3.0-9.0); NEUT # 3.1 10*3/uL (2.3-7.9); NEUT % 67.1 % (47.0-73.0); PLATELET COUNT AUTOMATED 191 10*3/uL (130-400); RED BLOOD COUNT 3.53 10*6/uL (4.10-5.10); RED CELL DISTRI WIDTH 14.7 % (0-14.5); WHITE BLOOD COUNT 4.6 10*3/uL (4.8-10.8)
[2021-01-15 22:41] LABS: ALBUMIN 2.7 gm/dl (3.1-4.5); ALKALINE PHOSPHATASE 72 U/L (45-117); BUN 9 mg/dl (7-24); CHLORIDE 101 mmol/L (98-107); POTASSIUM 3.9 mmol/L (3.5-5.1); SGOT/AST 16 IU/L (3-35); SGPT/ALT 16 U/L (12-78); SODIUM 140 mmol/L (136-145); TOTAL PROTEIN 6.7 gm/dL (6.4-8.2)
== END 2021-01-16 02:19 | disposition home or self-care (01) ==
LOC: ED 21:26
PROVIDERS: Internal Medicine
DX: D53.9 Nutritional anemia, unspecified (principal); I50.21 Acute systolic (congestive) heart failure; E87.2 Acidosis; E88.09 Other disorders of plasma-protein metabolism, not elsewhere classified; Z79.82 Long term (current) use of aspirin; Z79.899 Other long term (current) drug therapy; Z96.653 Presence of artificial knee joint, bilateral; Z90.49 Acquired absence of other specified parts of digestive tract; Z98.51 Tubal ligation status; Z98.890 Other specified postprocedural states

== ENCOUNTER → 2021-03-10 | Outpatient (CLI) | payer MEDICAID ==
[~2021-03-10] MED LIST changes: +ACETAZOLAMIDE250 MG PO; +DEEP SEA44 ML NAS; +KENALOG 0.1%80 GM T; +LASIX40 MG PO; +LEVOTHYROXINE200 MC2 PO; +METFORMIN HYDR500 MG PO; +Nizoral 2%15 GM T; +PRAMIPEXOLE DIHY1 MG PO
[2021-03-10 13:59] LABS: BASO % 0.3 % (0.0-1.0); EOS # 0.1 10*3/uL (0.0-0.4); EOS % 2.3 % (1.0-4.0); HEMATOCRIT 36.2 % (37.0-47.0); LYMPH # 0.9 10*3/uL (1.3-4.4); LYMPH % 23.7 % (27.0-41.0); MEAN CORPUSCULAR HGB 27.1 pg (27.0-31.0); MEAN CORPUSCULAR HGB CONC 28.2 g/dl (33.0-37.0); MEAN PLATELET VOLUME 9.3 fl (9.6-12.3); MONO # 0.3 10*3/uL (0.1-1.0); MONO % 8.4 % (3.0-9.0); NEUT # 2.5 10*3/uL (2.3-7.9); NEUT % 64.5 % (47.0-73.0); PLATELET COUNT AUTOMATED 219 10*3/uL (130-400); RED BLOOD COUNT 3.77 10*6/uL (4.10-5.10); RED CELL DISTRI WIDTH 15.2 % (0-14.5); WHITE BLOOD COUNT 3.9 10*3/uL (4.8-10.8)
[2021-03-10 14:19] LABS: BUN 10 mg/dl (7-24); CHLORIDE 95 mmol/L (98-107); CREATININE 0.75 mg/dL (0.55-1.02); POTASSIUM 4.5 mmol/L (3.5-5.1); SODIUM 139 mmol/L (136-145)
[2021-03-10 14:22] LABS: IRON 38 ug/dL (50-170); TOTAL IRON BINDING CAPACITY 436 ug/dl (250-450)
== END | disposition home or self-care (01) ==
LOC: LAB 13:43
PROVIDERS: Nurse Practitioner Family; ATTEND Registered Nurse
DX: I25.10 Atherosclerotic heart disease of native coronary artery without angina pectoris (principal); D64.9 Anemia, unspecified

== ENCOUNTER → 2021-03-15 | Outpatient (CLI) | payer MEDICAID | END | disposition home or self-care (01) | LOC: CARD 10:30 | PROVIDERS: ATTEND Registered Nurse | DX: R01.1 Cardiac murmur, unspecified (principal) ==

== ENCOUNTER 2021-03-23 02:00 | Inpatient (IN) | payer MEDICAID ==
[2021-03-23] VITALS (8 sets, daily range): BP systolic 127–161; BP diastolic 59–69
[~2021-03-23] VITALS: Ht 162.5 cm; Wt 170.2 kg
[~2021-03-23 02:00] MED LIST changes: -ACETAZOLAMIDE250 MG PO; -DEEP SEA44 ML NAS; -KENALOG 0.1%80 GM T; -LASIX40 MG PO; -LEVOTHYROXINE200 MC2 PO; -METFORMIN HYDR500 MG PO; -Nizoral 2%15 GM T; -PRAMIPEXOLE DIHY1 MG PO
[2021-03-23 03:07] LABS: BASO % 0.5 % (0.0-1.0); EOS # 0.1 10*3/uL (0.0-0.4); EOS % 2.7 % (1.0-4.0); HEMATOCRIT 33.9 % (37.0-47.0); LYMPH # 0.9 10*3/uL (1.3-4.4); MEAN CELL VOLUME 95.8 fl (81.0-99.0); MEAN CORPUSCULAR HGB 26.3 pg (27.0-31.0); MEAN CORPUSCULAR HGB CONC 27.4 g/dl (33.0-37.0); MEAN PLATELET VOLUME 9.7 fl (9.6-12.3); MONO # 0.3 10*3/uL (0.1-1.0); MONO % 7.6 % (3.0-9.0); NEUT # 2.7 10*3/uL (2.3-7.9); NEUT % 66.2 % (47.0-73.0); PLATELET COUNT AUTOMATED 202 10*3/uL (130-400); RED BLOOD COUNT 3.54 10*6/uL (4.10-5.10); RED CELL DISTRI WIDTH 15.3 % (0-14.5); WHITE BLOOD COUNT 4.1 10*3/uL (4.8-10.8)
[2021-03-23 03:23] LABS: ALKALINE PHOSPHATASE 67 U/L (45-117); BUN 9 mg/dl (7-24); CHLORIDE 96 mmol/L (98-107); CREATININE 0.73 mg/dL (0.55-1.02); POTASSIUM 3.9 mmol/L (3.5-5.1); SGOT/AST 13 IU/L (3-35); SGPT/ALT 15 U/L (12-78); SODIUM 140 mmol/L (136-145); TOTAL PROTEIN 7.2 gm/dL (6.4-8.2)
[2021-03-23 03:34] LABS: TROPONIN I < 0.015 ng/ml (<0.045)
[2021-03-23] MEDS ORDERED: METFORMIN HYDR500 MG PO (10:17)
[2021-03-23] MEDS ORDERED: PROAIR HFA8.5 GM INH (10:18)
[2021-03-23] MEDS ORDERED: PRAMIPEXOLE DIHY1 MG PO (10:21)
[2021-03-23] MEDS ORDERED: LEVOTHYROXINE200 MC2 PO (10:23)
[2021-03-23] MEDS ORDERED: Nizoral 2%15 GM T (10:23)
[2021-03-23] MEDS ORDERED: DEEP SEA44 ML NAS (10:25)
[2021-03-23] MEDS ORDERED: KENALOG 0.1%80 GM T (10:26)
[2021-03-23 11:37] LABS: ABG BASE EXCESS 19.3 mmol/L (-2.0-2.0); ARTERIAL BLOOD GAS PH 7.344 (7.35-7.45); ARTERIAL BLOOD GAS PO2 60.8 (80-90)
[2021-03-24] VITALS: BP 141/66
[2021-03-24 05:26] LABS: ABG BASE EXCESS 15.5 mmol/L (-2.0-2.0); ARTERIAL BLOOD GAS PH 7.353 (7.35-7.45); ARTERIAL BLOOD GAS PO2 80.9 (80-90)
[2021-03-24 07:05] LABS: BASO % 0.3 % (0.0-1.0); HEMATOCRIT 32.3 % (37.0-47.0); LYMPH # 0.5 10*3/uL (1.3-4.4); MEAN CELL VOLUME 93.4 fl (81.0-99.0); MEAN CORPUSCULAR HGB 26.6 pg (27.0-31.0); MEAN CORPUSCULAR HGB CONC 28.5 g/dl (33.0-37.0); MEAN PLATELET VOLUME 10.5 fl (9.6-12.3); MONO # 0.1 10*3/uL (0.1-1.0); MONO % 2.6 % (3.0-9.0); NEUT # 2.8 10*3/uL (2.3-7.9); NEUT % 81.9 % (47.0-73.0); PLATELET COUNT AUTOMATED 213 10*3/uL (130-400); RED BLOOD COUNT 3.46 10*6/uL (4.10-5.10); RED CELL DISTRI WIDTH 15.4 % (0-14.5); WHITE BLOOD COUNT 3.4 10*3/uL (4.8-10.8)
[2021-03-24 07:30] LABS: ALBUMIN 2.7 gm/dl (3.1-4.5); ALKALINE PHOSPHATASE 63 U/L (45-117); BUN 10 mg/dl (7-24); CHLORIDE 95 mmol/L (98-107); CHOLESTEROL 130 mg/dL (<200); CREATININE 0.83 mg/dL (0.55-1.02); FREE T4 1.18 ng/dl (0.76-1.46); LDL CHOLESTEROL 67 mg/dL (9-159); POTASSIUM 4.2 mmol/L (3.5-5.1); SGOT/AST 22 IU/L (3-35); SGPT/ALT 16 U/L (12-78); SODIUM 139 mmol/L (136-145); TOTAL PROTEIN 6.8 gm/dL (6.4-8.2); TRIGLYCERIDES 92 mg/dl (<150)
[2021-03-24 08:00] VITALS: BP 102/46
[2021-03-24 12:00] VITALS: BP 118/55
[2021-03-24 12:05] LABS: ARTERIAL BLOOD GAS PH 7.412 (7.35-7.45)
[2021-03-24 16:00] VITALS: BP 129/57
[2021-03-24 20:00] VITALS: BP 128/55
[2021-03-25] VITALS: BP 131/61
[2021-03-25 06:13] LABS: BUN 15 mg/dl (7-24); CHLORIDE 93 mmol/L (98-107); POTASSIUM 3.8 mmol/L (3.5-5.1); SODIUM 135 mmol/L (136-145)
[2021-03-25 06:18] LABS: ALKALINE PHOSPHATASE 58 U/L (45-117); CREATININE 0.93 mg/dL (0.55-1.02); SGOT/AST 16 IU/L (3-35); SGPT/ALT 18 U/L (12-78); TOTAL PROTEIN 7.1 gm/dL (6.4-8.2)
[2021-03-25 06:31] LABS: BASO % 0.2 % (0.0-1.0); HEMATOCRIT 31.7 % (37.0-47.0); LYMPH # 0.6 10*3/uL (1.3-4.4); MEAN CORPUSCULAR HGB 26.1 pg (27.0-31.0); MEAN CORPUSCULAR HGB CONC 28.1 g/dl (33.0-37.0); MEAN PLATELET VOLUME 10.9 fl (9.6-12.3); MONO # 0.1 10*3/uL (0.1-1.0); MONO % 2.2 % (3.0-9.0); NEUT # 4.2 10*3/uL (2.3-7.9); NUCLEATED RED BLOOD CELL 0.4 % (0.0-0.0); PLATELET COUNT AUTOMATED 212 10*3/uL (130-400); RED BLOOD COUNT 3.41 10*6/uL (4.10-5.10); RED CELL DISTRI WIDTH 14.9 % (0-14.5)
[2021-03-25 08:00] VITALS: BP 133/56
[2021-03-25 08:11] LABS: ABG BASE EXCESS 15.3 mmol/L (-2.0-2.0); ARTERIAL BLOOD GAS PH 7.342 (7.35-7.45); ARTERIAL BLOOD GAS PO2 70.8 (80-90)
[2021-03-25 12:00] VITALS: BP 138/68
[2021-03-25 16:00] VITALS: BP 137/64
[2021-03-25 18:00] VITALS: BP 137/64
[2021-03-25 20:00] VITALS: BP 122/53
[2021-03-26] VITALS: BP 125/53
[2021-03-26 06:09] LABS: HEMATOCRIT 35.6 % (37.0-47.0); LYMPH # 0.5 10*3/uL (1.3-4.4); LYMPH % 12.4 % (27.0-41.0); MEAN CORPUSCULAR HGB 26.1 pg (27.0-31.0); MEAN CORPUSCULAR HGB CONC 27.2 g/dl (33.0-37.0); MEAN PLATELET VOLUME 11.1 fl (9.6-12.3); MONO # 0.1 10*3/uL (0.1-1.0); MONO % 3.3 % (3.0-9.0); NEUT # 3.6 10*3/uL (2.3-7.9); NEUT % 83.4 % (47.0-73.0); PLATELET COUNT AUTOMATED 216 10*3/uL (130-400); RED BLOOD COUNT 3.71 10*6/uL (4.10-5.10); RED CELL DISTRI WIDTH 14.7 % (0-14.5); WHITE BLOOD COUNT 4.3 10*3/uL (4.8-10.8)
[2021-03-26 06:27] LABS: ALBUMIN 3.1 gm/dl (3.1-4.5); BUN 16 mg/dl (7-24); CHLORIDE 97 mmol/L (98-107); POTASSIUM 4.5 mmol/L (3.5-5.1); SGOT/AST 14 IU/L (3-35); SGPT/ALT 20 U/L (12-78); SODIUM 137 mmol/L (136-145); TOTAL PROTEIN 7.4 gm/dL (6.4-8.2)
[2021-03-26 06:28] LABS: ALKALINE PHOSPHATASE 59 U/L (45-117); CREATININE 0.91 mg/dL (0.55-1.02)
[2021-03-26 07:58] LABS: ABG BASE EXCESS 11.2 mmol/L (-2.0-2.0); ARTERIAL BLOOD GAS PH 7.278 (7.35-7.45); ARTERIAL BLOOD GAS PO2 107.7 (80-90)
[2021-03-26 08:00] VITALS: BP 152/67
[2021-03-26 12:00] VITALS: BP 140/73
[2021-03-26 16:00] VITALS: BP 147/61
[2021-03-26 20:00] VITALS: BP 130/55
[2021-03-27] VITALS: BP 122/54
[2021-03-27 06:16] LABS: HEMATOCRIT 34.9 % (37.0-47.0); LYMPH # 0.4 10*3/uL (1.3-4.4); LYMPH % 8.8 % (27.0-41.0); MEAN CELL VOLUME 93.8 fl (81.0-99.0); MEAN CORPUSCULAR HGB 26.3 pg (27.0-31.0); MEAN CORPUSCULAR HGB CONC 28.1 g/dl (33.0-37.0); MEAN PLATELET VOLUME 10.8 fl (9.6-12.3); MONO # 0.1 10*3/uL (0.1-1.0); MONO % 3.2 % (3.0-9.0); NEUT # 3.9 10*3/uL (2.3-7.9); NEUT % 86.9 % (47.0-73.0); PLATELET COUNT AUTOMATED 225 10*3/uL (130-400); RED BLOOD COUNT 3.72 10*6/uL (4.10-5.10); RED CELL DISTRI WIDTH 14.7 % (0-14.5); WHITE BLOOD COUNT 4.4 10*3/uL (4.8-10.8)
[2021-03-27 06:39] LABS: BUN 18 mg/dl (7-24); CHLORIDE 98 mmol/L (98-107); POTASSIUM 4.7 mmol/L (3.5-5.1); SODIUM 136 mmol/L (136-145)
[2021-03-27 06:41] LABS: CREATININE 0.86 mg/dL (0.55-1.02)
[2021-03-27 08:00] VITALS: BP 155/70
[2021-03-27 12:00] VITALS: BP 152/64
[2021-03-27 16:00] VITALS: BP 129/50
[2021-03-27 20:00] VITALS: BP 142/58
[2021-03-28] VITALS: BP 122/48
[2021-03-28 06:26] LABS: HEMATOCRIT 36.4 % (37.0-47.0); LYMPH # 0.4 10*3/uL (1.3-4.4); LYMPH % 8.4 % (27.0-41.0); MEAN CELL VOLUME 91.9 fl (81.0-99.0); MEAN CORPUSCULAR HGB CONC 28.3 g/dl (33.0-37.0); MONO # 0.2 10*3/uL (0.1-1.0); NEUT # 4.4 10*3/uL (2.3-7.9); NEUT % 87.4 % (47.0-73.0); PLATELET COUNT AUTOMATED 257 10*3/uL (130-400); RED BLOOD COUNT 3.96 10*6/uL (4.10-5.10); RED CELL DISTRI WIDTH 14.6 % (0-14.5)
[2021-03-28 06:35] LABS: BUN 21 mg/dl (7-24); CHLORIDE 98 mmol/L (98-107); CREATININE 0.91 mg/dL (0.55-1.02); POTASSIUM 4.6 mmol/L (3.5-5.1); SODIUM 138 mmol/L (136-145)
[2021-03-28 08:00] VITALS: BP 115/67
[2021-03-28 08:19] LABS: ABG BASE EXCESS 10.4 mmol/L (-2.0-2.0); ARTERIAL BLOOD GAS PH 7.282 (7.35-7.45); ARTERIAL BLOOD GAS PO2 79.4 (80-90)
[2021-03-28 12:00] VITALS: BP 118/50
[2021-03-28 16:00] VITALS: BP 129/52
[2021-03-28 20:00] VITALS: BP 114/50
[2021-03-29] VITALS: BP 132/61
[2021-03-29 08:00] VITALS: BP 126/52
[2021-03-29 12:00] VITALS: BP 115/52
[2021-03-29] MEDS ORDERED: LASIX40 MG PO ×2 (15:28)
[2021-03-29 16:00] VITALS: BP 121/60
[2021-03-29 20:00] VITALS: BP 109/51
[2021-03-30] VITALS: BP 138/69
[2021-03-30 08:00] VITALS: BP 100/71
[2021-03-30 12:00] VITALS: BP 124/91
[2021-03-30 16:00] VITALS: BP 125/65
[2021-03-30 20:00] VITALS: BP 121/52
[2021-03-31] VITALS: BP 125/55
[2021-03-31 08:00] VITALS: BP 130/56; BP 136/56
[2021-03-31 12:00] VITALS: BP 132/72
[2021-03-31 16:00] VITALS: BP 130/50
[2021-03-31 20:00] VITALS: BP 124/53
[2021-04-01] VITALS: BP 129/56
[2021-04-01 08:00] VITALS: BP 139/51
[2021-04-01 12:00] VITALS: BP 132/68
[2021-04-01 16:00] VITALS: BP 105/50; BP 108/63
[2021-04-01 20:00] VITALS: BP 110/53
[2021-04-02] VITALS: BP 135/65
[2021-04-02 06:11] LABS: EOS # 0.1 10*3/uL (0.0-0.4); EOS % 1.6 % (1.0-4.0); HEMATOCRIT 36.1 % (37.0-47.0); LYMPH # 1.1 10*3/uL (1.3-4.4); MEAN CELL VOLUME 88.7 fl (81.0-99.0); MEAN CORPUSCULAR HGB 25.8 pg (27.0-31.0); MEAN CORPUSCULAR HGB CONC 29.1 g/dl (33.0-37.0); MEAN PLATELET VOLUME 11.2 fl (9.6-12.3); MONO # 0.4 10*3/uL (0.1-1.0); MONO % 6.9 % (3.0-9.0); NEUT # 4.2 10*3/uL (2.3-7.9); NEUT % 71.5 % (47.0-73.0); PLATELET COUNT AUTOMATED 261 10*3/uL (130-400); RED BLOOD COUNT 4.07 10*6/uL (4.10-5.10); RED CELL DISTRI WIDTH 14.8 % (0-14.5); WHITE BLOOD COUNT 5.8 10*3/uL (4.8-10.8)
[2021-04-02 06:12] LABS: BUN 24 mg/dl (7-24); CHLORIDE 97 mmol/L (98-107); CREATININE 0.81 mg/dL (0.55-1.02); POTASSIUM 3.8 mmol/L (3.5-5.1); SODIUM 137 mmol/L (136-145)
[2021-04-02 08:00] VITALS: BP 100/84
[2021-04-02 12:00] VITALS: BP 130/53
[2021-04-02 16:00] VITALS: BP 122/56
[2021-04-02 20:00] VITALS: BP 118/47; BP 128/54
[2021-04-03] VITALS: BP 128/59
[2021-04-03 08:00] VITALS: BP 143/58
[2021-04-03 12:00] VITALS: BP 144/66
[2021-04-03] MEDS ORDERED: ACETAZOLAMIDE250 MG PO (14:39)
== END 2021-04-03 15:13 | DRG 720 ==
LOC: ED 02:00 → 5E 07:42 → EDHOLD 07:42 → 4E 07:42 → 5E 08:50 → 4E 03-24 12:43
PROVIDERS: Emergency Medicine; Hospitalist; Internal Medicine; Internal Medicine Critical Care Medicine; Student in an Organized Health Care Education/Training Program; ADMIT Family Medicine; ATTEND Family Medicine
PROC: 5A09357 Assistance with Respiratory Ventilation, Less than 24 Consecutive Hours, Continuous Positive Airway Pressure (ICD-10-PCS; principal; 2021-03-24)
PROC: 5A0935A Assistance with Respiratory Ventilation, Less than 24 Consecutive Hours, High Flow/Velocity Cannula (ICD-10-PCS; 2021-03-24)
PROC: 5A09357 Assistance with Respiratory Ventilation, Less than 24 Consecutive Hours, Continuous Positive Airway Pressure (ICD-10-PCS; 2021-03-25)
PROC: 5A09357 Assistance with Respiratory Ventilation, Less than 24 Consecutive Hours, Continuous Positive Airway Pressure (ICD-10-PCS; 2021-03-26)
PROC: 5A0935A Assistance with Respiratory Ventilation, Less than 24 Consecutive Hours, High Flow/Velocity Cannula (ICD-10-PCS; 2021-03-26)
PROC: 5A09357 Assistance with Respiratory Ventilation, Less than 24 Consecutive Hours, Continuous Positive Airway Pressure (ICD-10-PCS; 2021-03-27)
PROC: 5A0935A Assistance with Respiratory Ventilation, Less than 24 Consecutive Hours, High Flow/Velocity Cannula (ICD-10-PCS; 2021-03-27)
PROC: 5A09357 Assistance with Respiratory Ventilation, Less than 24 Consecutive Hours, Continuous Positive Airway Pressure (ICD-10-PCS; 2021-03-28)
PROC: 5A09357 Assistance with Respiratory Ventilation, Less than 24 Consecutive Hours, Continuous Positive Airway Pressure (ICD-10-PCS; 2021-03-29)
PROC: 5A0935A Assistance with Respiratory Ventilation, Less than 24 Consecutive Hours, High Flow/Velocity Cannula (ICD-10-PCS; 2021-03-29)
PROC: 5A09357 Assistance with Respiratory Ventilation, Less than 24 Consecutive Hours, Continuous Positive Airway Pressure (ICD-10-PCS; 2021-03-30)
PROC: 5A09357 Assistance with Respiratory Ventilation, Less than 24 Consecutive Hours, Continuous Positive Airway Pressure (ICD-10-PCS; 2021-03-31)
PROC: 5A09357 Assistance with Respiratory Ventilation, Less than 24 Consecutive Hours, Continuous Positive Airway Pressure (ICD-10-PCS; 2021-04-01)
DX: A41.9 Sepsis, unspecified organism (principal); J44.1 Chronic obstructive pulmonary disease with (acute) exacerbation; J96.21 Acute and chronic respiratory failure with hypoxia; J96.22 Acute and chronic respiratory failure with hypercapnia; E44.0 Moderate protein-calorie malnutrition; E66.2 Morbid (severe) obesity with alveolar hypoventilation; Z20.822 Contact with and (suspected) exposure to COVID-19; I50.30 Unspecified diastolic (congestive) heart failure; E87.2 Acidosis; E87.8 Other disorders of electrolyte and fluid balance, not elsewhere classified; D64.9 Anemia, unspecified; E87.3 Alkalosis; Z96.653 Presence of artificial knee joint, bilateral; K21.9 Gastro-esophageal reflux disease without esophagitis; I11.0 Hypertensive heart disease with heart failure; E88.09 Other disorders of plasma-protein metabolism, not elsewhere classified; J18.9 Pneumonia, unspecified organism; J44.0 Chronic obstructive pulmonary disease with (acute) lower respiratory infection; R65.20 Severe sepsis without septic shock; Z68.45 Body mass index [BMI] 70 or greater, adult; Z88.8 Allergy status to other drugs, medicaments and biological substances; Z79.82 Long term (current) use of aspirin; Z90.49 Acquired absence of other specified parts of digestive tract; Z98.51 Tubal ligation status; Z80.3 Family history of malignant neoplasm of breast

== ENCOUNTER 2021-04-05 10:03 | Inpatient (IN) | payer MEDICAID ==
[~2021-04-05] VITALS: Ht 162.5 cm; Wt 169.4 kg
[~2021-04-05 10:03] MED LIST changes: +ACETAZOLAMIDE250 MG PO; +DEEP SEA44 ML NAS; +KENALOG 0.1%80 GM T; +LASIX40 MG PO; +LEVOTHYROXINE200 MC2 PO; +METFORMIN HYDR500 MG PO; +Nizoral 2%15 GM T; +PRAMIPEXOLE DIHY1 MG PO
[2021-04-05 10:18] VITALS: BP 98/47
[2021-04-05 10:39] LABS: BASO % 0.3 % (0.0-1.0); EOS # 0.1 10*3/uL (0.0-0.4); EOS % 1.6 % (1.0-4.0); HEMATOCRIT 39.3 % (37.0-47.0); LYMPH % 16.3 % (27.0-41.0); MEAN CELL VOLUME 93.6 fl (81.0-99.0); MEAN CORPUSCULAR HGB 26.2 pg (27.0-31.0); MEAN PLATELET VOLUME 10.5 fl (9.6-12.3); MONO # 0.5 10*3/uL (0.1-1.0); MONO % 8.1 % (3.0-9.0); NEUT # 4.4 10*3/uL (2.3-7.9); NEUT % 71.6 % (47.0-73.0); PLATELET COUNT AUTOMATED 257 10*3/uL (130-400); RED CELL DISTRI WIDTH 15.5 % (0-14.5); WHITE BLOOD COUNT 6.2 10*3/uL (4.8-10.8)
[2021-04-05 10:54] LABS: ALBUMIN 2.9 gm/dl (3.1-4.5); ALKALINE PHOSPHATASE 64 U/L (45-117); BUN 35 mg/dl (7-24); CHLORIDE 102 mmol/L (98-107); CREATININE 2.19 mg/dL (0.55-1.02); LIPASE 277 U/L (73-393); POTASSIUM 4.2 mmol/L (3.5-5.1); SGOT/AST 19 IU/L (3-35); SGPT/ALT 31 U/L (12-78); SODIUM 138 mmol/L (136-145); TOTAL PROTEIN 6.9 gm/dL (6.4-8.2); TROPONIN I < 0.015 ng/ml (<0.045)
[2021-04-05 19:05] VITALS: BP 138/60
[2021-04-06] VITALS: BP 129/61
[2021-04-06 06:50] LABS: HEMATOCRIT 37.8 % (37.0-47.0); MEAN CELL VOLUME 90.9 fl (81.0-99.0); MEAN CORPUSCULAR HGB CONC 28.6 g/dl (33.0-37.0); MEAN PLATELET VOLUME 11.4 fl (9.6-12.3); PLATELET COUNT AUTOMATED 256 10*3/uL (130-400); RED BLOOD COUNT 4.16 10*6/uL (4.10-5.10); WHITE BLOOD COUNT 5.1 10*3/uL (4.8-10.8)
[2021-04-06 07:21] LABS: ALBUMIN 2.7 gm/dl (3.1-4.5); BUN 26 mg/dl (7-24); CHLORIDE 104 mmol/L (98-107); CREATININE 0.93 mg/dL (0.55-1.02); POTASSIUM 4.5 mmol/L (3.5-5.1); SGOT/AST 18 IU/L (3-35); SGPT/ALT 29 U/L (12-78); SODIUM 138 mmol/L (136-145)
[2021-04-06 07:23] LABS: ALKALINE PHOSPHATASE 63 U/L (45-117); TOTAL PROTEIN 6.6 gm/dL (6.4-8.2)
[2021-04-06 08:00] VITALS: BP 117/66
[2021-04-06 08:11] LABS: BASOPHILS 1 % (0-1); PLATELET SUFFICIENCY NORMAL (NORMAL); TOTAL CELLS COUNTED 100 #CELLS
[2021-04-06 12:00] VITALS: BP 116/59
[2021-04-06 12:30] LABS: ABG BASE EXCESS 2.2 mmol/L (-2.0-2.0); ARTERIAL BLOOD GAS PH 7.271 (7.35-7.45); ARTERIAL BLOOD GAS PO2 79.8 (80-90)
[2021-04-06 12:40] LABS: BILIRUBIN Negative (Negative); BLOOD 3+ (Negative); CLARITY Clear (Clear); COLOR Yellow (Yellow); GLUCOSE Negative (Negative); KETONE Negative (Negative); LEUKO ESTERASE Negative (Negative); NITRITE Negative (Negative); PH 5.5 (4.5-8.0); UROBILINOGEN 0.2 E.U./dl (0.0-1.0)
[2021-04-06 12:52] LABS: HYALINE CAST 0-2
[2021-04-06 16:00] VITALS: BP 113/98; BP 116/56
[2021-04-06 16:29] LABS: ABG BASE EXCESS 4.6 mmol/L (-2.0-2.0); ARTERIAL BLOOD GAS PH 7.324 (7.35-7.45); ARTERIAL BLOOD GAS PO2 80.3 (80-90)
[2021-04-06 20:00] VITALS: BP 118/51
[2021-04-07] VITALS: BP 98/46
[2021-04-07 06:23] LABS: BASO % 0.2 % (0.0-1.0); EOS # 0.1 10*3/uL (0.0-0.4); EOS % 1.1 % (1.0-4.0); HEMATOCRIT 34.9 % (37.0-47.0); LYMPH # 1.7 10*3/uL (1.3-4.4); LYMPH % 25.7 % (27.0-41.0); MEAN CELL VOLUME 89.7 fl (81.0-99.0); MEAN CORPUSCULAR HGB CONC 28.9 g/dl (33.0-37.0); MONO # 0.4 10*3/uL (0.1-1.0); MONO % 6.8 % (3.0-9.0); NEUT # 4.2 10*3/uL (2.3-7.9); NEUT % 64.5 % (47.0-73.0); PLATELET COUNT AUTOMATED 236 10*3/uL (130-400); RED BLOOD COUNT 3.89 10*6/uL (4.10-5.10); WHITE BLOOD COUNT 6.4 10*3/uL (4.8-10.8)
[2021-04-07 06:42] LABS: ALBUMIN 2.6 gm/dl (3.1-4.5); BUN 29 mg/dl (7-24); CHLORIDE 105 mmol/L (98-107); CREATININE 1.02 mg/dL (0.55-1.02); POTASSIUM 4.3 mmol/L (3.5-5.1); SGOT/AST 19 IU/L (3-35); SGPT/ALT 27 U/L (12-78); SODIUM 139 mmol/L (136-145); TOTAL PROTEIN 6.2 gm/dL (6.4-8.2)
[2021-04-07 06:50] LABS: ALKALINE PHOSPHATASE 56 U/L (45-117)
[2021-04-07 08:00] VITALS: BP 126/72
[2021-04-07 08:55] LABS: ARTERIAL BLOOD GAS PH 7.291 (7.35-7.45); ARTERIAL BLOOD GAS PO2 72.5 (80-90)
[2021-04-07 12:00] VITALS: BP 122/70
[2021-04-07] MEDS ORDERED: LEVOFLOXACIN500 MG PO (13:25)
== END 2021-04-07 15:00 | DRG 139 ==
LOC: ED 10:03 → EDHOLD 14:58 → 4E 14:58
PROVIDERS: Emergency Medicine; Internal Medicine Critical Care Medicine; Internal Medicine Nephrology; Podiatrist Foot & Ankle Surgery; ADMIT Internal Medicine; ATTEND Internal Medicine
PROC: 5A09357 Assistance with Respiratory Ventilation, Less than 24 Consecutive Hours, Continuous Positive Airway Pressure (ICD-10-PCS; principal; 2021-04-06)
PROC: 5A09357 Assistance with Respiratory Ventilation, Less than 24 Consecutive Hours, Continuous Positive Airway Pressure (ICD-10-PCS; 2021-04-07)
DX: J18.9 Pneumonia, unspecified organism (principal); N17.0 Acute kidney failure with tubular necrosis; J96.11 Chronic respiratory failure with hypoxia; I95.9 Hypotension, unspecified; G93.41 Metabolic encephalopathy; Z20.822 Contact with and (suspected) exposure to COVID-19; N32.81 Overactive bladder; N18.30 Chronic kidney disease, stage 3 unspecified; E53.8 Deficiency of other specified B group vitamins; J44.0 Chronic obstructive pulmonary disease with (acute) lower respiratory infection; Z96.653 Presence of artificial knee joint, bilateral; I50.33 Acute on chronic diastolic (congestive) heart failure; E66.2 Morbid (severe) obesity with alveolar hypoventilation; J96.12 Chronic respiratory failure with hypercapnia; G45.9 Transient cerebral ischemic attack, unspecified; K21.9 Gastro-esophageal reflux disease without esophagitis; E03.9 Hypothyroidism, unspecified; Z90.49 Acquired absence of other specified parts of digestive tract; Z98.51 Tubal ligation status; Z80.3 Family history of malignant neoplasm of breast; Z88.8 Allergy status to other drugs, medicaments and biological substances; Z79.82 Long term (current) use of aspirin; Z79.51 Long term (current) use of inhaled steroids; Z79.899 Other long term (current) drug therapy; Z68.44 Body mass index [BMI] 60.0-69.9, adult

== ENCOUNTER 2021-04-10 21:27 | Inpatient (IN) | payer MEDICAID ==
[~2021-04-10] VITALS: Ht 162.6 cm; Wt 168.0 kg
[~2021-04-10 21:27] MED LIST changes: +LEVOFLOXACIN500 MG PO
[2021-04-10 21:29] VITALS: BP 91/41
[2021-04-10 21:57] LABS: MEAN CELL VOLUME 95.1 fl (81.0-99.0); MEAN CORPUSCULAR HGB 26.1 pg (27.0-31.0); MEAN CORPUSCULAR HGB CONC 27.4 g/dl (33.0-37.0); MEAN PLATELET VOLUME 10.9 fl (9.6-12.3); PLATELET COUNT AUTOMATED 191 10*3/uL (130-400); RED CELL DISTRI WIDTH 15.8 % (0-14.5); WHITE BLOOD COUNT 5.2 10*3/uL (4.8-10.8)
[2021-04-10 22:18] LABS: ALBUMIN 2.8 gm/dl (3.1-4.5); ALKALINE PHOSPHATASE 64 U/L (45-117); BUN 25 mg/dl (7-24); CHLORIDE 105 mmol/L (98-107); CREATININE 1.72 mg/dL (0.55-1.02); POTASSIUM 4.5 mmol/L (3.5-5.1); SGOT/AST 27 IU/L (3-35); SGPT/ALT 29 U/L (12-78); SODIUM 139 mmol/L (136-145); TOTAL PROTEIN 6.5 gm/dL (6.4-8.2)
[2021-04-10 22:20] LABS: PLATELET SUFFICIENCY NORMAL (NORMAL); TOTAL CELLS COUNTED 100 #CELLS
[2021-04-10 22:24] LABS: TROPONIN I < 0.015 ng/ml (<0.045)
[2021-04-10 22:55] LABS: ABG BASE EXCESS 0.5 mmol/L (-2.0-2.0)
[2021-04-10 22:57] LABS: ARTERIAL BLOOD GAS PH 7.019 (7.35-7.45)
[2021-04-10 23:45] VITALS: BP 94/44
[2021-04-11] VITALS (14 sets, daily range): BP systolic 80–108; BP diastolic 36–60
[2021-04-11 02:23] LABS: ARTERIAL BLOOD GAS PO2 67.8 (80-90)
[2021-04-11 02:25] LABS: ARTERIAL BLOOD GAS PH 7.049 (7.35-7.45)
[2021-04-11 03:54] LABS: HEMATOCRIT 40.5 % (37.0-47.0); MEAN CELL VOLUME 95.1 fl (81.0-99.0); MEAN CORPUSCULAR HGB 26.1 pg (27.0-31.0); MEAN CORPUSCULAR HGB CONC 27.4 g/dl (33.0-37.0); MEAN PLATELET VOLUME 10.4 fl (9.6-12.3); PLATELET COUNT AUTOMATED 176 10*3/uL (130-400); RED BLOOD COUNT 4.26 10*6/uL (4.10-5.10); RED CELL DISTRI WIDTH 15.7 % (0-14.5); WHITE BLOOD COUNT 4.8 10*3/uL (4.8-10.8)
[2021-04-11 04:09] LABS: CREATININE 1.95 mg/dL (0.55-1.02); POTASSIUM 4.7 mmol/L (3.5-5.1)
[2021-04-11 04:21] LABS: PLATELET SUFFICIENCY NORMAL (NORMAL); TOTAL CELLS COUNTED 100 #CELLS
[2021-04-11 06:16] LABS: BILIRUBIN Negative (Negative); BLOOD 2+ (Negative); CLARITY Cloudy (Clear); COLOR Dark Yellow (Yellow); GLUCOSE Negative (Negative); KETONE Negative (Negative); LEUKO ESTERASE Negative (Negative); NITRITE Negative (Negative)
[2021-04-11] MEDS ORDERED: ACETAMINOPHEN500 M4 PO (06:31)
[2021-04-11 06:40] LABS: HYALINE CAST TNTC; RBC 21-30 rbc/hpf (0-2)
[2021-04-11 06:41] LABS: BACTERIA 2+; MUCOUS 1+
[2021-04-11 07:50] LABS: ABG BASE EXCESS -2.2 mmol/L (-2.0-2.0); ARTERIAL BLOOD GAS PO2 88.5 (80-90)
[2021-04-11 07:52] LABS: ARTERIAL BLOOD GAS PH 7.101 (7.35-7.45)
[2021-04-11 14:06] LABS: ABG BASE EXCESS 2.2 mmol/L (-2.0-2.0)
[2021-04-11 14:09] LABS: ARTERIAL BLOOD GAS PH 7.176 (7.35-7.45)
[2021-04-11 16:57] LABS: ABG BASE EXCESS 2.8 mmol/L (-2.0-2.0); ARTERIAL BLOOD GAS PH 7.255 (7.35-7.45); ARTERIAL BLOOD GAS PO2 75.7 (80-90)
[2021-04-12] VITALS: BP 87/53
[2021-04-12 04:00] VITALS: BP 97/44
[2021-04-12 06:02] LABS: ALBUMIN 2.6 gm/dl (3.1-4.5); CREATININE 1.48 mg/dL (0.55-1.02)
[2021-04-12 06:06] LABS: POTASSIUM 3.6 mmol/L (3.5-5.1)
[2021-04-12 06:16] LABS: BASO % 0.6 % (0.0-1.0); EOS # 0.1 10*3/uL (0.0-0.4); EOS % 1.6 % (1.0-4.0); HEMATOCRIT 33.7 % (37.0-47.0); LYMPH # 1.2 10*3/uL (1.3-4.4); LYMPH % 23.8 % (27.0-41.0); MEAN CELL VOLUME 92.1 fl (81.0-99.0); MEAN CORPUSCULAR HGB 26.2 pg (27.0-31.0); MEAN CORPUSCULAR HGB CONC 28.5 g/dl (33.0-37.0); MEAN PLATELET VOLUME 11.2 fl (9.6-12.3); MONO # 0.3 10*3/uL (0.1-1.0); MONO % 6.2 % (3.0-9.0); NEUT # 3.4 10*3/uL (2.3-7.9); NEUT % 66.8 % (47.0-73.0); PLATELET COUNT AUTOMATED 174 10*3/uL (130-400); RED BLOOD COUNT 3.66 10*6/uL (4.10-5.10); RED CELL DISTRI WIDTH 15.8 % (0-14.5)
[2021-04-12 08:00] VITALS: BP 112/61
[2021-04-12 09:07] LABS: ABG BASE EXCESS 2.7 mmol/L (-2.0-2.0); ARTERIAL BLOOD GAS PH 7.304 (7.35-7.45); ARTERIAL BLOOD GAS PO2 69.6 (80-90)
[2021-04-12 12:00] VITALS: BP 99/40
[2021-04-12 16:00] VITALS: BP 95/40
[2021-04-12 20:00] VITALS: BP 105/44
[2021-04-13] VITALS: BP 118/58
[2021-04-13 04:00] VITALS: BP 117/55
[2021-04-13 05:13] LABS: CREATININE 1.44 mg/dL (0.55-1.02); POTASSIUM 4.2 mmol/L (3.5-5.1)
[2021-04-13 07:23] LABS: BASO % 0.8 % (0.0-1.0); EOS # 0.1 10*3/uL (0.0-0.4); EOS % 2.5 % (1.0-4.0); HEMATOCRIT 36.1 % (37.0-47.0); LYMPH # 1.2 10*3/uL (1.3-4.4); LYMPH % 33.6 % (27.0-41.0); MEAN CELL VOLUME 92.6 fl (81.0-99.0); MEAN CORPUSCULAR HGB 26.2 pg (27.0-31.0); MEAN CORPUSCULAR HGB CONC 28.3 g/dl (33.0-37.0); MONO # 0.3 10*3/uL (0.1-1.0); MONO % 8.5 % (3.0-9.0); NEUT % 53.8 % (47.0-73.0); PLATELET COUNT AUTOMATED 155 10*3/uL (130-400); WHITE BLOOD COUNT 3.7 10*3/uL (4.8-10.8)
[2021-04-13 08:00] VITALS: BP 132/67
[2021-04-13 08:16] LABS: ABG BASE EXCESS 3.2 mmol/L (-2.0-2.0); ARTERIAL BLOOD GAS PH 7.226 (7.35-7.45); ARTERIAL BLOOD GAS PO2 90.8 (80-90)
[2021-04-13 12:00] VITALS: BP 90/52
[2021-04-13 16:00] VITALS: BP 92/58
[2021-04-13 20:00] VITALS: BP 98/64
[2021-04-14] VITALS: BP 113/59
[2021-04-14 04:00] VITALS: BP 105/54
[2021-04-14 06:09] LABS: CREATININE 1.38 mg/dL (0.55-1.02); POTASSIUM 3.9 mmol/L (3.5-5.1)
[2021-04-14 06:32] LABS: BASO % 0.6 % (0.0-1.0); EOS # 0.1 10*3/uL (0.0-0.4); EOS % 2.5 % (1.0-4.0); HEMATOCRIT 35.9 % (37.0-47.0); LYMPH # 0.9 10*3/uL (1.3-4.4); LYMPH % 28.6 % (27.0-41.0); MEAN CELL VOLUME 94.2 fl (81.0-99.0); MEAN CORPUSCULAR HGB CONC 27.6 g/dl (33.0-37.0); MEAN PLATELET VOLUME 11.1 fl (9.6-12.3); MONO # 0.2 10*3/uL (0.1-1.0); MONO % 7.1 % (3.0-9.0); NEUT # 1.9 10*3/uL (2.3-7.9); NEUT % 60.3 % (47.0-73.0); PLATELET COUNT AUTOMATED 146 10*3/uL (130-400); RED BLOOD COUNT 3.81 10*6/uL (4.10-5.10); RED CELL DISTRI WIDTH 16.2 % (0-14.5); WHITE BLOOD COUNT 3.2 10*3/uL (4.8-10.8)
[2021-04-14 08:00] VITALS: BP 112/57
[2021-04-14 12:00] VITALS: BP 104/58
[2021-04-14 12:07] LABS: CREATININE,URINE 141.6 mg/dL (Not Estab.)
[2021-04-14 16:00] VITALS: BP 96/51
[2021-04-14 20:00] VITALS: BP 102/36
[2021-04-15] VITALS: BP 110/44
[2021-04-15 04:00] VITALS: BP 100/42
[2021-04-15 06:16] LABS: BASO % 0.3 % (0.0-1.0); EOS # 0.1 10*3/uL (0.0-0.4); EOS % 2.3 % (1.0-4.0); HEMATOCRIT 33.2 % (37.0-47.0); LYMPH # 1.1 10*3/uL (1.3-4.4); LYMPH % 27.8 % (27.0-41.0); MEAN CORPUSCULAR HGB 26.1 pg (27.0-31.0); MEAN PLATELET VOLUME 11.5 fl (9.6-12.3); MONO # 0.2 10*3/uL (0.1-1.0); MONO % 5.8 % (3.0-9.0); NEUT # 2.5 10*3/uL (2.3-7.9); NEUT % 63.3 % (47.0-73.0); PLATELET COUNT AUTOMATED 141 10*3/uL (130-400); RED BLOOD COUNT 3.57 10*6/uL (4.10-5.10)
[2021-04-15 06:29] LABS: ALBUMIN 2.6 gm/dl (3.1-4.5); CREATININE 1.19 mg/dL (0.55-1.02); POTASSIUM 3.6 mmol/L (3.5-5.1)
[2021-04-15 06:33] LABS: TOTAL PROTEIN 5.8 gm/dL (6.4-8.2)
[2021-04-15 08:00] VITALS: BP 101/44
[2021-04-15 12:00] VITALS: BP 92/46
[2021-04-15 16:00] VITALS: BP 85/42
[2021-04-15 20:00] VITALS: BP 103/40
[2021-04-16] VITALS: BP 94/41
[2021-04-16 04:00] VITALS: BP 95/37
[2021-04-16 06:07] LABS: BASO % 0.3 % (0.0-1.0); EOS # 0.1 10*3/uL (0.0-0.4); EOS % 2.3 % (1.0-4.0); HEMATOCRIT 32.1 % (37.0-47.0); LYMPH # 1.2 10*3/uL (1.3-4.4); LYMPH % 41.5 % (27.0-41.0); MEAN CELL VOLUME 92.5 fl (81.0-99.0); MEAN CORPUSCULAR HGB 25.9 pg (27.0-31.0); MEAN PLATELET VOLUME 11.5 fl (9.6-12.3); MONO # 0.3 10*3/uL (0.1-1.0); MONO % 8.4 % (3.0-9.0); NEUT # 1.4 10*3/uL (2.3-7.9); NEUT % 47.2 % (47.0-73.0); PLATELET COUNT AUTOMATED 128 10*3/uL (130-400); RED BLOOD COUNT 3.47 10*6/uL (4.10-5.10); RED CELL DISTRI WIDTH 16.2 % (0-14.5)
[2021-04-16 06:13] LABS: CREATININE 1.28 mg/dL (0.55-1.02); POTASSIUM 3.7 mmol/L (3.5-5.1)
[2021-04-16 08:00] VITALS: BP 105/45
[2021-04-16 12:00] VITALS: BP 102/48
[2021-04-16 16:00] VITALS: BP 109/50
[2021-04-16 20:00] VITALS: BP 110/51
[2021-04-17] VITALS: BP 110/51
[2021-04-17 04:00] VITALS: BP 107/72
[2021-04-17 06:21] LABS: RETICULOCYTE % 2.52 % (0.50-2.50)
[2021-04-17 08:00] VITALS: BP 112/50
[2021-04-17 10:47] LABS: BASO % 0.4 % (0.0-1.0); EOS # 0.1 10*3/uL (0.0-0.4); HEMATOCRIT 34.3 % (37.0-47.0); LYMPH # 0.9 10*3/uL (1.3-4.4); LYMPH % 37.2 % (27.0-41.0); MEAN CELL VOLUME 90.7 fl (81.0-99.0); MEAN CORPUSCULAR HGB 25.9 pg (27.0-31.0); MEAN CORPUSCULAR HGB CONC 28.6 g/dl (33.0-37.0); MEAN PLATELET VOLUME 11.4 fl (9.6-12.3); MONO # 0.2 10*3/uL (0.1-1.0); MONO % 7.8 % (3.0-9.0); NEUT # 1.2 10*3/uL (2.3-7.9); NEUT % 51.2 % (47.0-73.0); PLATELET COUNT AUTOMATED 131 10*3/uL (130-400); RED BLOOD COUNT 3.78 10*6/uL (4.10-5.10); RED CELL DISTRI WIDTH 16.1 % (0-14.5); WHITE BLOOD COUNT 2.3 10*3/uL (4.8-10.8)
[2021-04-17 12:00] VITALS: BP 88/40
[2021-04-17 16:00] VITALS: BP 102/56
[2021-04-17 20:00] VITALS: BP 94/55
[2021-04-18] VITALS: BP 92/50
[2021-04-18 03:06] LABS: TOTAL PROTEIN, SERUM 5.8 g/dL (6.0-8.5)
[2021-04-18 06:43] LABS: POTASSIUM 3.7 mmol/L (3.5-5.1)
[2021-04-18 06:59] LABS: CREATININE 1.33 mg/dL (0.55-1.02)
[2021-04-18 07:05] LABS: HEMATOCRIT 31.9 % (37.0-47.0); MEAN CELL VOLUME 91.9 fl (81.0-99.0); MEAN CORPUSCULAR HGB 25.6 pg (27.0-31.0); MEAN CORPUSCULAR HGB CONC 27.9 g/dl (33.0-37.0); MEAN PLATELET VOLUME 11.4 fl (9.6-12.3); PLATELET COUNT AUTOMATED 129 10*3/uL (130-400); RED BLOOD COUNT 3.47 10*6/uL (4.10-5.10); RED CELL DISTRI WIDTH 16.2 % (0-14.5); WHITE BLOOD COUNT 2.2 10*3/uL (4.8-10.8)
[2021-04-18 08:00] VITALS: BP 108/78
[2021-04-18 08:19] LABS: TOTAL CELLS COUNTED 100 #CELLS
[2021-04-18 08:20] LABS: PLATELET SUFFICIENCY NORMAL (NORMAL)
[2021-04-18 12:00] VITALS: BP 110/82
[2021-04-18 13:06] LABS: ALBUMIN 2.9 g/dL (2.9-4.4); ALPHA-1-GLOBULIN 0.2 g/dL (0.0-0.4); ALPHA-2-GLOBULIN 0.7 g/dL (0.4-1.0); BETA GLOBULIN 1.2 g/dL (0.7-1.3); GAMMA GLOBULIN 0.7 g/dL (0.4-1.8); GLOBULIN, TOTAL 2.9 g/dL (2.2-3.9); M-SPIKE Not Observed g/dL (Not Observed); PE INTERPRETATION Comment: (.)
[2021-04-18] MEDS ORDERED: LEVOFLOXACIN750 M2 PO (13:33)
[2021-04-18] MEDS ORDERED: METOPROLOL TART50 M1 PO (16:26)
[2021-04-30] MEDS ORDERED: LEVOFLOXACIN750 M2 PO (16:11)
== END 2021-04-18 18:16 | DRG 720 ==
LOC: ED 21:27 → EDHOLD 23:08 → ICCU 23:08
PROVIDERS: Internal Medicine; Internal Medicine Critical Care Medicine; Internal Medicine Hematology & Oncology; Internal Medicine Nephrology; Physician Assistant; Student in an Organized Health Care Education/Training Program; ADMIT Internal Medicine; ATTEND Internal Medicine
PROC: 5A09357 Assistance with Respiratory Ventilation, Less than 24 Consecutive Hours, Continuous Positive Airway Pressure (ICD-10-PCS; principal; 2021-04-10)
PROC: 5A0935A Assistance with Respiratory Ventilation, Less than 24 Consecutive Hours, High Flow/Velocity Cannula (ICD-10-PCS; 2021-04-11)
PROC: 5A09357 Assistance with Respiratory Ventilation, Less than 24 Consecutive Hours, Continuous Positive Airway Pressure (ICD-10-PCS; 2021-04-12)
PROC: 5A0935A Assistance with Respiratory Ventilation, Less than 24 Consecutive Hours, High Flow/Velocity Cannula (ICD-10-PCS; 2021-04-12)
PROC: 5A09357 Assistance with Respiratory Ventilation, Less than 24 Consecutive Hours, Continuous Positive Airway Pressure (ICD-10-PCS; 2021-04-13)
PROC: 5A09357 Assistance with Respiratory Ventilation, Less than 24 Consecutive Hours, Continuous Positive Airway Pressure (ICD-10-PCS; 2021-04-14)
PROC: 5A0935A Assistance with Respiratory Ventilation, Less than 24 Consecutive Hours, High Flow/Velocity Cannula (ICD-10-PCS; 2021-04-14)
PROC: 5A09357 Assistance with Respiratory Ventilation, Less than 24 Consecutive Hours, Continuous Positive Airway Pressure (ICD-10-PCS; 2021-04-15)
PROC: 5A09357 Assistance with Respiratory Ventilation, Less than 24 Consecutive Hours, Continuous Positive Airway Pressure (ICD-10-PCS; 2021-04-16)
PROC: 5A0935A Assistance with Respiratory Ventilation, Less than 24 Consecutive Hours, High Flow/Velocity Cannula (ICD-10-PCS; 2021-04-16)
PROC: 5A09357 Assistance with Respiratory Ventilation, Less than 24 Consecutive Hours, Continuous Positive Airway Pressure (ICD-10-PCS; 2021-04-17)
PROC: 5A0935A Assistance with Respiratory Ventilation, Less than 24 Consecutive Hours, High Flow/Velocity Cannula (ICD-10-PCS; 2021-04-17)
PROC: 5A09357 Assistance with Respiratory Ventilation, Less than 24 Consecutive Hours, Continuous Positive Airway Pressure (ICD-10-PCS; 2021-04-18)
DX: A41.50 Gram-negative sepsis, unspecified (principal); I50.33 Acute on chronic diastolic (congestive) heart failure; J96.21 Acute and chronic respiratory failure with hypoxia; J96.22 Acute and chronic respiratory failure with hypercapnia; N17.0 Acute kidney failure with tubular necrosis; N32.81 Overactive bladder; E44.0 Moderate protein-calorie malnutrition; Z20.822 Contact with and (suspected) exposure to COVID-19; G93.41 Metabolic encephalopathy; I95.9 Hypotension, unspecified; E53.8 Deficiency of other specified B group vitamins; R73.9 Hyperglycemia, unspecified; D61.818 Other pancytopenia; E66.01 Morbid (severe) obesity due to excess calories; J98.11 Atelectasis; J15.6 Pneumonia due to other Gram-negative bacteria; I13.0 Hypertensive heart and chronic kidney disease with heart failure and stage 1 through stage 4 chronic kidney disease, or unspecified chronic kidney disease; Z96.653 Presence of artificial knee joint, bilateral; N18.30 Chronic kidney disease, stage 3 unspecified; F41.9 Anxiety disorder, unspecified; E03.9 Hypothyroidism, unspecified; K21.9 Gastro-esophageal reflux disease without esophagitis; J44.0 Chronic obstructive pulmonary disease with (acute) lower respiratory infection; G47.33 Obstructive sleep apnea (adult) (pediatric); E87.8 Other disorders of electrolyte and fluid balance, not elsewhere classified; Z88.0 Allergy status to penicillin; Z90.49 Acquired absence of other specified parts of digestive tract; Z79.899 Other long term (current) drug therapy; Z98.51 Tubal ligation status; Z68.44 Body mass index [BMI] 60.0-69.9, adult; Z80.3 Family history of malignant neoplasm of breast; Z80.7 Family history of other malignant neoplasms of lymphoid, hematopoietic and related tissues; Z79.1 Long term (current) use of non-steroidal anti-inflammatories (NSAID); Z79.82 Long term (current) use of aspirin; Z79.2 Long term (current) use of antibiotics